=== PATIENT | female | born 1965 | race Caucasian/White ===

== ENCOUNTER 2023-08-03 22:05 | Inpatient (IN) | payer BC, SELFPAY ==
[2023-08-03 18:14] VITALS: BP 132/94
[2023-08-03 18:36] LABS: % Basophils 0.4 % (0-2); % Eosinophils 0.4 % (0-6); % Immature Granulocytes 0.3 % (0-0.5); % Lymphocytes 13.1 % (20.5-51.1); % Monocytes 8.5 % (1.7-9.3); % Neutrophils 77.3 % (42.2-75.2); Absolute Basophils 0.1 10^3/uL (0-0.2); Absolute Eosinophils 0.1 10^3/uL (0-0.7); Absolute Lymphocytes 1.8 10^3/uL (1.2-3.4); Absolute Monocytes 1.1 10^3/uL (0.1-0.6); Absolute Neutrophils 10.3 10^3/uL (1.4-6.5); Hematocrit 38.6 % (37.0-47.0); Hemoglobin 13.5 g/dL (12.0-16.0); Mean Corpuscular Hgb 28.7 pg (27.0-31.0); Mean Corpuscular Volume 82.1 fL (81.0-99.0); Mean Platelet Volume 8.8 fL (7.4-10.4); Nucleated Red Blood Cells % 0 %; Platelet Count 364 10^3/uL (130-400); Red Cell Dist. Width 12.9 % (11.5-14.5); White Blood Cell Count 13.3 10^3/uL (4.8-10.8)
[2023-08-03 18:40] VITALS: BMI 28.6
--- NOTE | 2023-08-03 18:42 | ED.GENMED ---
History of Present Illness
General
Chief Complaint: Abdominal Symptoms
Source: patient
Exam Limitations: none
Time Seen by Provider: 08/03/23 18:22
Travel History
Have you had any contact with someone who has COVID-19?: No
Do you have any symptoms of coronavirus? Fever > 100 degrees, chills, cough, shortness of breath, sore throat, loss of taste or smell, muscle aches, or headache?: No
History of Present Illness
History of Present Illness:
This is a 58 year old female that comes in with c/o lower abd pain. States that since her Resection she has had no problem. Then this morning when she got up she at first felt like she was constipated. Then she started with some lower abd pain and
pain into her back. States that the pain just wraps around. States that she started with a low grade fever of 99.7 at 2pm. State that she felt the same way when she had diverticulitis. States that she also had chills, slight headache and nausea.
Denies any chest pain, SOB, vomiting, diarrhea, dizziness, urinary burning.
Past History
Past History
ED Past Medical History: HTN, Hypercholesterolemia, Hypothyroidism and Other (Pericarditis, ESBL bacteriemia, )
ED Past Surgical History: Bowel resection (Colon resection, ) and Orthopedic (Arthroscopic knee surgery, ORIF right ankle)
Social History
Tobacco: Non-smoker
Alcohol: None
Drug: None
Personal:
Living: with family
Employment: Employed
Family History
Family History: Early CAD (Her brother) and Other
Review of Systems
Review of Systems
All Other Systems: ROS reviewed and negative except as documented in HPI and ROS
Constitutional: Reports fever (Low grade) and chills
EENT: Reports no symptoms
Respiratory: Reports no symptoms; Denies cough or trouble breathing
Cardiac: Reports no symptoms; Denies chest pain
ABD/GI: Reports abdominal pain and nausea; Denies vomiting or diarrhea
: Reports no symptoms; Denies dysuria, frequency or urgency
Musculoskeletal: Reports no symptoms
Skin: Reports no symptoms
Neurological: Reports headache (Slight); Denies dizzy
Psychiatric: Reports no symptoms
Phy Exam
General Physical Exam
General Presentation: no apparent distress
General age: appears stated age
General Skin: warm and dry
General Habitus: normal
General Mental: alert
General Hydration: appears well hydrated
ENT Exam
ENT Exam: TM's normal, pharynx normal and neck supple
Eye Exam
Eye Exam: EOMI
Cardiovascular Exam
Cardiovascular Exam: regular rate/rhythm, no edema, no murmur and normal peripheral pulses
Pulmonary Exam
Pulmonary Exam: lungs clear, no respiratory distress, no rales, chest non tender, no crackles, no rhonchi, no wheezing and no cough
Gastrointestinal Exam
Gastrointestinal Exam: normal bowel sounds, soft, no organomegaly, no pulsatile mass, non distended and tender (Slight left sided tenderness with palpation)
Musculoskeletal Exam
Musculoskeletal Exam: full ROM and no edema
Skin Exam
Skin Exam: normal color, warm/dry, no rash and no petechia
Course
Orders/Labs/Results
Orders:
Orders
08/03/23 18:30
Complete Blood Count/With Diff Urgent
Comprehensive Metabolic Panel Urgent
Lipase Urgent
08/03/23 18:39
0.9% Sodium Chloride 1000 ml [Nss] 1,000 ml IV BOLUS
08/03/23 18:41
CT Abd/pelvis W Iv Cont Urgent
Comment: Colon resection
Reason For Exam: Lower abd pain
08/03/23 18:46
Urinalysis Reflex To Culture Urgent
Date Specimen was Collected: 08/03/23
Time Specimen was Collected: 18:42
08/03/23 20:32
LevoFLOXacin [Levaquin] 500 mg PO NOW STA
MetroNIDAZOLE [Flagyl] 500 mg PO NOW STA
08/03/23 20:36
LevoFLOXacin 500 mg IVPB NOW LevoFLOXacin 500 MG/100 ML [Levaquin] 500 mg in 100 ml IV NOW
MetroNIDAZOLE IVPB 500 mg IVPB NOW MetroNIDAZOLE 500 MG/100 ML [Flagyl 500 mg] 100 ml IV NOW
Abnormal Lab Results
08/03/23
18:30
WBC 13.3 H 10^3/uL
(4.8-10.8)
Absolute Neuts (auto) 10.3 H 10^3/uL
(1.4-6.5)
Absolute Monos (auto) 1.1 H 10^3/uL
(0.1-0.6)
Neutrophils % 77.3 H %
(42.2-75.2)
Lymphocytes % 13.1 L %
(20.5-51.1)
Sodium 134 L mmol/L
(135-145)
Glucose 102 H mg/dl
(70-99)
08/03/23 18:30
08/03/23 18:30
Leukocytosis, Glucose nonfasting. Lipase normal at 74, Urine negative for infection.
Vital Signs
Initial and Last Documented VS:
Initial Vital Signs
Temp Pulse Resp BP Pulse Ox
99.6 F 121 20 132/94 95
08/03/23 18:14 08/03/23 18:14 08/03/23 18:14 08/03/23 18:14 08/03/23 18:14
Last Documented Vital Signs
Temp Pulse Resp BP Pulse Ox
99.6 F 111 18 119/95 95
08/03/23 18:14 08/03/23 18:50 08/03/23 18:50 08/03/23 18:50 08/03/23 18:50
MDM/Problems Addressed
Differential Diagnosis Includes:
UTI, Diverticulitis, Bowel obstruction
MDM/Problems Addressed:
This is a 58 year old female that comes in with c/o lower abd pain. States that the pain wraps around to the back on both sided. States that she felt like this when she had diverticulitis.
Will get labs, CT scan, IV fluids and check urine. Patient refused pain medication.
back into see patient. Reviewed labs and CT report. Patient at this time has a fever of 100.1 and states that she feels really sick. Patient is concerned as she has had ESBL bacteremia in the past. Will the Diverticulitis and ileus, will admit
patient. Hospitalist notified
Chronic conditions affecting care: Previous abdomnial surgery
Acute Exacerbation and/or Progression of Chronic Illness: Previous abdomnial surgery
*Radiology
Radiology exam reviewed: radiology read reviewed (CT scan- In the proximal to midportion of the descending colon, there is an approximately 13cm long segment of diverticulitis. No evidence for abscess. No evidence of free intraperitoneal air. There
are a few scattered top-normal to slightly dilated loops of small bowel, mainly fluid filled, and ) and all reviewed NAD by ED Provider (CT cont- This would suggest a mild focal ileus. Small scar [id number] the anterior lower pole of the left
kidney, also present on previous CT examination in 2013. Small amount of free pelvic fluid in the right posterior pelvis. )
*Pulse Oximetry
Patient hypoxic: no
*EKG
Interpreted by ED Provider?: NA
Rate: EKG- N/A
*Sheetrock Applicator Interpretation
Rate: Sheetrock Applicator- N/A
*Critical Care Note
Total Time (30-74mins, 75-104mins- exclusive of procedures): Not Applicable
ED Attending Note
-
Portions of this chart may have been created with voice recognition software.� Occasional wrong word or��sound alike� substitutions may have occurred due to the inherent limitations of voice recognition software.
Discharge Plan
Departure
Patient Disposition: Admit
Date of Disposition: 08/03/23
Time of Disposition: 20:39
Admit to: Med/Surg
Presentation/result/management discussed w/ accepting MD/DO: Hospitalist
Patient with high blood pressure during this ER visit?: No
Condition: Good
Covid-19: Not Applicable
Discharge Problem:
Diverticulitis, Ileus
Prescriptions:
No Action
amlodipine 5 mg Tablet
5 mg PO DAILY
levothyroxine 112 mcg Tablet
112 mcg PO MOTUWETHFRSA
rosuvastatin 5 mg Tablet
5 mg PO MOWEFR
hydrochlorothiazide 12.5 mg Tablet
12.5 mg PO DAILY
ibuprofen 800 mg Tablet
600 mg PO Q8HPRN PRN (Reason: moderate pain) Qty: 7 0RF
Interventions
Interventions:
*Risk Screen - Suicide Last Done: 08/03/23 18:14
*General Assessment Last Done: 08/03/23 18:14
*Neglect/Abuse Screening Last Done: 08/03/23 18:14
QZ-Hdboxg-Szalemhrlx Assessment Last Done: 08/03/23 18:40
Discharge Date and Time
Print Language: ALGERIAN
[2023-08-03] MEDS: NSS 1000 IV ×2 (18:46→23:12)
[2023-08-03 18:50] VITALS: BP 119/95
[2023-08-03 18:50] LABS: ALT (SGPT) 20 U/L (0-35); AST (SGOT) 27 U/L (14-36); Albumin 4.5 g/dl (3.5-5.0); Alkaline Phosphatase 79 U/L (38-126); Blood Urea Nitrogen 10 mg/dl (7-17); Calcium 9.5 mg/dl (8.4-10.2); Carbon Dioxide 29 mmol/L (22-30); Chloride 99 mmol/L (98-107); Estimated Creatinine Clearance 76 ml/min; Glucose 102 mg/dl (70-99); Lipase 74 U/L (23-300); Potassium 3.6 mmol/L (3.5-5.1); Sodium 134 mmol/L (135-145); Total Bilirubin 0.7 mg/dl (0.2-1.3); Total Protein 7.6 g/dl (6.3-8.2); eGFR > 60.00
[2023-08-03 18:57] LABS: Urine Albumin Negative (Neg - Trace); Urine Bilirubin Negative (Negative); Urine Character Clear (Clear); Urine Color Yellow; Urine Glucose Negative (Negative); Urine Ketone Negative (Negative); Urine Leukocyte Negative (Negative); Urine Nitrite Negative (Negative); Urine Occult Blood Negative (Negative); Urine Specific Gravity 1.005 (<1.030); Urine Urobilinogen Negative (Neg - 1+)
[2023-08-03] MEDS: TYLENOL 1000 MG PO (20:45)
[2023-08-03] MEDS: LEVAQUIN 100 IV (20:46)
[2023-08-03 20:51] VITALS: BP 133/99
--- NOTE | 2023-08-03 21:27 | HPS.HSE ---
Family Physician
-
Family Physician: Avinash Ramey
Chief Complaint
-
Abdominal Pain
History of Present Illness
Patient is a 58-year-old male past medical essential hypertension, hyperlipidemia, recurrent diverticulitis with ESBL E. coli bacteremia status post sigmoidectomy in 2013 who presents with left-sided abdominal pain. Patient states she has not had
any episodes of diverticulitis since her resection in 2013. However, this morning she developed left-sided abdominal discomfort. Later in the afternoon she developed low-grade fever of 99.7 �F. She states throughout the day she did not feel as
her usual self. Given her prior history she presented to the emergency department for evaluation.
Medical History
Past Medical History
Past Medical History: Reports Other
Additional Past Medical History:
Essential Hypertension
Familial Hypercholesterolemia
Hypothyroidism
Recurrent Diverticulitis s/p Sigmoidectomy
Past Surgical History: Reports Other
Additional Past Surgical History:
Sigmoidectomy
Social History
Tobacco: Non-smoker
Alcohol: None
Family History
Family History: Not pertinent
Allergies / Home Medications
Allergies reflects when Allergies were last updated in [employer].
Home Medications with original date entered in [employer]
Allergy/Medication List:
Allergies
Allergy/AdvReac Type Severity Reaction Status Date / Time
No Known Allergies Allergy Verified 08/03/23 18:18
Home Medications
amlodipine 5 mg tablet 5 mg PO DAILY Blood Pressure 01/24/23
hydrochlorothiazide 12.5 mg tablet 12.5 mg PO DAILY Fluid Retention/Swelling 01/24/23
levothyroxine 112 mcg tablet 112 mcg PO MOTUWETHFRSA Thyroid 01/24/23
rosuvastatin 5 mg tablet 5 mg PO MOWEFR@2200 High Cholesterol 01/24/23
evolocumab 140 mg/mL subcutaneous pen injector (Repatha Benjamin) 140 mg SC Q2W 08/03/23
ibuprofen 200 mg tablet 600 mg PO Q6H PRN mild pain 08/03/23
Review of Systems
-
A 12 point ROS was completed and negative except as noted: Yes
Constitutional: Reports Fever
Respiratory: Denies Cough or Trouble Breathing
Cardiac: Denies Chest Pain or Palpitations
Abdomen/GI: Reports See HPI
Physical Exam
Vital Signs
Vital Signs
Temp Pulse Resp BP Pulse Ox
99.6 F 112 19 133/99 93
08/03/23 18:14 08/03/23 20:51 08/03/23 20:51 08/03/23 20:51 08/03/23 20:51
Physical Exam
General: Comfortable and Conversant
HEENT: Anicteric and Moist mucous membranes
Respiratory: Clear and Non Labored Respirations
Cardiac: S1/S2, Regular Rhythm and Tachycardia (Slightly)
GI: Soft and Tender (Mild Left lower quadrant without rebound or guarding)
Rectal: Deferred by Provider
Musculoskeletal: No Clubbing, No Cyanosis and No Edema
Skin: Warm and Dry
Neuro: Awake, Alert, Oriented and Nonfocal/grossly intact
Psych: Calm
Laboratory Results
-
08/03/23 18:30
08/03/23 18:30
Laboratory Results
Total Bilirubin 0.7 mg/dl (0.2-1.3) 08/03/23 18:30
AST 27 U/L (14-36) 08/03/23 18:30
ALT 20 U/L (0-35) 08/03/23 18:30
Alkaline Phosphatase 79 U/L (38-126) 08/03/23 18:30
Lipase 74 U/L (23-300) 08/03/23 18:30
Data Reviewed
-
CT Scan: Report Reviewed by me
Lab Data: Labs Reviewed by me
Impression/Plan
-
Sepsis secondary to Diverticulitis of the Descending Colon
-Check blood cultures given prior history of E. coli Bacteremia
-Continue Levaquin and Flagyl
-Continue NPO - Advance to clears if pain improved in AM
Essentail Hypertension
-Continue amlodipine
-Hold HCTZ
Hyperlipidemia
-Continue Crestor
-Patient also maintained on Repatha as outpatient
Hypothyroidism
-Continue levothyroxine
DVT Proph: Lovenox
Code Status: Full Code
[2023-08-03] MEDS: FLAGYL 500 MG 100 IV (21:53)
--- NOTE | 2023-08-03 21:55 | W.PN.UPDATE ---
Update Note
Progress Note Update
This is an addendum to the history and physical written by bulk driver Kiersten Cortes on 08/03/23.�
Patient seen and examined independently with PA.� 58-year-old female past medical history of diverticulitis in the past status post bowel resection in 2013 associated with ESBL bacteremia, hypertension, hypercholesteremia, hypothyroidism presenting
with left-sided abdominal pain and low-grade fever today.� CT scan shows 13 cm segment of diverticulitis in the proximal to midportion of the descending colon.
NPO.� IV fluids, check blood cultures, Levaquin and Flagyl.� Hold hydrochlorothiazide.
[2023-08-03 22:05] LABS: Lactic Acid 0.8 mmol/L (0.7-2.0)
[2023-08-04] VITALS: BP 109/83
[2023-08-04] MEDS: FLAGYL 500 MG 100 IV (06:37)
[2023-08-04] MEDS: NSS 1000 IV ×3 (06:37→23:21)
[2023-08-04] MEDS: TYLENOL 650 MG PO (06:56)
[2023-08-04 07:05] LABS: Hematocrit 32.5 % (37.0-47.0); Hemoglobin 11.3 g/dL (12.0-16.0); Mean Corp Hgb Conc. 34.8 g/dL (33.0-37.0); Mean Corpuscular Hgb 28.9 pg (27.0-31.0); Mean Corpuscular Volume 83.1 fL (81.0-99.0); Mean Platelet Volume 9.2 fL (7.4-10.4); Platelet Count 302 10^3/uL (130-400); Red Blood Cell Count 3.91 10^6/uL (4.20-5.40); Red Cell Dist. Width 13.2 % (11.5-14.5); White Blood Cell Count 9.8 10^3/uL (4.8-10.8)
[2023-08-04 07:26] LABS: Blood Urea Nitrogen 7 mg/dl (7-17); Calcium 8.8 mg/dl (8.4-10.2); Carbon Dioxide 26 mmol/L (22-30); Chloride 105 mmol/L (98-107); Estimated Creatinine Clearance 87 ml/min; Glucose 106 mg/dl (70-99); Potassium 3.6 mmol/L (3.5-5.1); Sodium 136 mmol/L (135-145); eGFR > 60.00
[2023-08-04] MEDS: SYNTHROID 112 MCG PO (08:29)
[2023-08-04 08:35] VITALS: BP 108/68
--- NOTE | 2023-08-04 08:40 | PTCARENOTE ---
pt aaox3. sates having a headache but tylenol has helped. no abd pain. no sob. room air breath sounds clear. ivf running as ordered. diet advanced to clears as ordered.
[2023-08-04] MEDS: NORVASC 5 MG PO (09:35)
--- NOTE | 2023-08-04 09:58 | W.PN.HOSP.TC ---
Today's Communication/Plan
-
Will change abx to Zosyn
Consult Dr. Yo
continue IVF
allow clear liquids
Assessment / Plan
Assessment / Plan
Sepsis secondary to Diverticulitis of the Descending Colon
Hx of Diverticulitis with resection by 12/2013, did very well post surgical intervention until current episode
-Check blood cultures given prior history of E. coli (ESBL) Bacteremia
-Change Levaquin and Flagyl to Zosyn
-will allow clears
CT scan abd/pelvis: In the proximal to midportion of the descending colon, there is an approximately 13 cm long segment of diverticulitis. No evidence for abscess. No evidence of free intraperitoneal air.
There are a few scattered top-normal to slightly dilated loops of small bowel, mainly fluid-filled, and this would suggest a mild focal ileus.
Small scar involving the anterior lower pole of the left kidney, also present on previous CT examination in 2013.
Small amount of free pelvic fluid in the right posterior pelvis.
Essential Hypertension
-Continue amlodipine
-Hold HCTZ
Hyperlipidemia
-Continue Crestor
-Patient also maintained on Repatha as outpatient
Hypothyroidism
-Continue levothyroxine
DVT Proph: Lovenox
Code Status: Full Code
Anticipated Discharge: 24 - 48 hours
Subjective/Interval History
-
Date of Service: August 04, 2023
Has not yet passed stool, still with abd pain. Pt is wondering about timing of dc
Objective Data
-
Labs:
Laboratory Results
08/04/23
06:46
WBC 9.8
Hgb 11.3 L
Hct 32.5 L
Plt Count 302
Sodium 136
Potassium 3.6
Chloride 105
Carbon Dioxide 26
BUN 7
Creatinine 0.7
Glucose 106 H
Calcium 8.8
Vital Signs:
Vital Signs
Temp Pulse Resp BP Pulse Ox
98.7 F 95 18 108/68 95
08/04/23 08:35 08/04/23 09:35 08/04/23 08:35 08/04/23 09:35 08/04/23 08:39
Review of Systems
-
History Source: Patient
Constitutional: Reports Fever (she states she was told temp of 101.2 on admission)
EENT: Reports No Symptoms Reported
Respiratory: Reports No Symptoms
Cardiac: Reports No Symptoms
Abdomen/GI: Reports Abdominal Pain, Nausea and Anorexia; Denies Vomiting
Genitourinary: Reports No Symptoms
Physical Exam
-
General: Well Developed, Well Nourished and No Apparent Distress
HEENT: Normocephalic, Atraumatic and Moist Mucous Membranes
Respiratory: Clear to Auscultation; Negative Wheezes, Rales or Rhonchi
Cardiac: Regular Rhythm and S1/S2
GI: Soft, Nondistended and Tender; Negative Normal Bowel Sounds (decreased,more prominent on Rt side>Lt)
Musculoskeletal: No Clubbing, No Cyanosis and No Edema
--- NOTE | 2023-08-04 11:00 | CON.GS ---
Consultation
-
Date/Time Consultation Requested: 08/04/23 10 AM
Date/Time Consultation Performed: 08/04/23 10 AM
Requesting Provider: Jeronimo
Performing Provider: Sanaz
Reason for Consultation: Diverticulitis
Medical History
-
Chief Complaint: Left-sided abdominal pain
History of Present Illness:
Mrs. Hernandez is a 58-year-old female previously known to myself status post laparoscopic sigmoidectomy in 2013 for management of multiply recurrent sigmoid diverticulitis. She tolerated this procedure well without any perioperative complications.
She has not had any recurrent bouts of diverticulitis since the procedure up to now.
Patient states she was in her usual baseline state of health until . As the day was going on she began to experience abdominal discomfort in the suprapubic/periumbilical abdomen but not localizing to the left lower quadrant. She was
concerned that it may be a new bout of diverticulitis as it did somewhat remind her of her previous episodes but not quite as localized or deep in the pelvis. She backed down her diet the following day but was continuing to tolerate p.o. intake.
Had some mild nausea and anorexia Tuesday in the Tuesday and low-grade fever. Due to the persistence of her pain/tenderness she presented for emergency department evaluation last night identifying diverticulitis at the region of the splenic
flexure/descending colon.
This a.m. she states that her pain has nearly resolved and she has minimal residual tenderness. No nausea. No abdominal bloating or distention. She is passing flatus on occasion. She had multiple small/soft semiformed bowel movements yesterday.
None today. Temperature 101 overnight.
No abdominal surgeries since laparoscopic sigmoidectomy with myself. Last colonoscopy 2013, prior to sigmoidectomy.
Past Medical History
Past Medical History: Other (Hypertension, hypercholesterolemia, hypothyroidism, previous history of sigmoid diverticulitis)
Past Surgical History: Bowel Resection (Laparoscopic sigmoidectomy 2013)
Social History
Alcohol: None
Drug: None
Personal:
Living: With Family
Employment: Employed
Family History
Family History: Reviewed & Noncontributory
Allergies / Home Medications
Allergy/AdvReac Type Severity Reaction Status Date / Time
No Known Allergies Allergy Verified 08/03/23 18:18
�Medication �Instructions �Recorded �Confirmed �Type
amlodipine 5 mg tablet 5 mg PO DAILY Blood Pressure 01/24/23 08/03/23 History
hydrochlorothiazide 12.5 mg tablet 12.5 mg PO DAILY Fluid 01/24/23 08/03/23 History
Retention/Swelling
levothyroxine 112 mcg tablet 112 mcg PO MOTUWETHFRSA Thyroid 01/24/23 08/03/23 History
rosuvastatin 5 mg tablet 5 mg PO MOWEFR@2200 High 01/24/23 08/03/23 History
Cholesterol
evolocumab 140 mg/mL subcutaneous 140 mg SC Q2W High Cholesterol 08/03/23 08/03/23 History
pen injector (Repatha Benjamin)
ibuprofen 200 mg tablet 600 mg PO Q6H PRN mild pain 08/03/23 08/03/23 History
Review of Systems
-
History Source: Patient
All other systems: Negative unless noted
A 10 point review of systems was completed, and was negative except as per HPI.
Physical Exam
Vital Signs
Temp Pulse Resp BP Pulse Ox
98.7 F 95 18 108/68 95
08/04/23 08:35 08/04/23 09:35 08/04/23 08:35 08/04/23 09:35 08/04/23 08:39
08/03/23 08/04/23 08/05/23
06:59 06:59 06:59
Actual Weight 75.5 kg
Body Mass Index (BMI) 28.6
Lab Results
08/04/23 06:46
08/04/23 06:46
WBC 9.8 10^3/uL (4.8-10.8) 08/04/23 06:46
Hgb 11.3 g/dL (12.0-16.0) L 08/04/23 06:46
Hct 32.5 % (37.0-47.0) L 08/04/23 06:46
Plt Count 302 10^3/uL (130-400) 08/04/23 06:46
Abs Immat Gran (auto) 0.0 10^3/uL (0-0.05) 08/03/23 18:30
Neutrophils % 77.3 % (42.2-75.2) H 08/03/23 18:30
Physical Exam
General: Well Developed, Well Nourished, No Apparent Distress and Comfortable
HEENT: Normocephalic, Anicteric and Moist Mucous Membranes
Respiratory: Non Labored Respirations
Cardiac: Regular Rhythm
GI: Soft, Non Distended and Tender (Mild tenderness to palpation suprapubic and left side. No rebound rigidity or guarding)
Skin: Warm
Neuro: AO x 3
Data Reviewed
-
CT Scan: Image Personally Visualized and interpreted, Report Reviewed by me and Discussed with Patient
Labs: Labs Reviewed by me and Discussed with Patient
Assessment / Plan
-
Assessment: 58-year-old female presenting with diverticulitis affecting proximal descending colon in the region of the splenic flexure.
CT imaging personally reviewed and interpreted as well as reviewing radiologist report. Associated surrounding inflammatory changes at the proximal descending colon to the mid descending colon but no evidence of microperforation such as
extraluminal air, free fluid or abscess formation. Numerous diverticula in the region of the inflammation highly suggestive that this is diverticulitis. Distal descending colon and neosigmoid colon/colorectal anastomosis unaffected.
Patient responding well to medical treatment including bowel rest, IV fluid hydration and antibiotics.
Plan: Continue medical management, okay for liquid diet today. Maintain IV fluid hydration. Zosyn for broad-spectrum empiric GI antibiotic coverage. Based on improvement overnight would likely anticipate discharge tomorrow on an additional 10 to
14-day course of oral antibiotics, transition to low residue diet. Recommended subsequent outpatient GI follow-up for consideration of colonoscopy after recovery from acute bout of descending colon diverticulitis.
Will follow, thank you.
[2023-08-04] MEDS: ZOSYN 50 IV ×3 (11:56→23:28)
--- NOTE | 2023-08-04 15:59 | PTCARENOTE ---
pt transferred to floor with all belongings ivf running
[2023-08-04 16:05] VITALS: BMI 28.6
[2023-08-04 16:10] VITALS: BP 122/89
--- NOTE | 2023-08-04 16:15 | PTCARENOTE ---
Received patient from ED into room 2126. Patient AAOx3, VSS, NSS infusing through R AC @ 125 ml/hr. Patient ambulatory in room, states abdominal pain has improved throughout day. Clear liquid diet ordered, patient oriented to room and call narvaez,
states no concerns at this time.
[2023-08-04 23:00] VITALS: BP 120/82
[2023-08-05] MEDS: ZOSYN 50 IV ×2 (05:47→11:25)
[2023-08-05 06:19] LABS: % Basophils 0.9 % (0-2); % Eosinophils 3.4 % (0-6); % Immature Granulocytes 0.1 % (0-0.5); % Lymphocytes 21.3 % (20.5-51.1); % Monocytes 9.2 % (1.7-9.3); % Neutrophils 65.1 % (42.2-75.2); Absolute Basophils 0.1 10^3/uL (0-0.2); Absolute Eosinophils 0.2 10^3/uL (0-0.7); Absolute Lymphocytes 1.5 10^3/uL (1.2-3.4); Absolute Monocytes 0.7 10^3/uL (0.1-0.6); Absolute Neutrophils 4.6 10^3/uL (1.4-6.5); Hemoglobin 10.7 g/dL (12.0-16.0); Mean Corp Hgb Conc. 33.4 g/dL (33.0-37.0); Mean Corpuscular Hgb 28.5 pg (27.0-31.0); Mean Corpuscular Volume 85.1 fL (81.0-99.0); Mean Platelet Volume 9.3 fL (7.4-10.4); Nucleated Red Blood Cells % 0 %; Platelet Count 306 10^3/uL (130-400); Red Blood Cell Count 3.76 10^6/uL (4.20-5.40)
[2023-08-05 07:01] LABS: ALT (SGPT) 19 U/L (0-35); AST (SGOT) 25 U/L (14-36); Albumin 3.3 g/dl (3.5-5.0); Alkaline Phosphatase 70 U/L (38-126); Blood Urea Nitrogen 4 mg/dl (7-17); Calcium 8.8 mg/dl (8.4-10.2); Carbon Dioxide 27 mmol/L (22-30); Chloride 106 mmol/L (98-107); Estimated Creatinine Clearance 76 ml/min; Glucose 94 mg/dl (70-99); Potassium 3.8 mmol/L (3.5-5.1); Sodium 140 mmol/L (135-145); Total Bilirubin 0.6 mg/dl (0.2-1.3); Total Protein 5.7 g/dl (6.3-8.2); eGFR > 60.00
[2023-08-05 08:00] VITALS: BP 123/79
--- NOTE | 2023-08-05 08:10 | W.PN.GS2 ---
Addendum entered and electronically signed by Christopher Yo MD 08/05/23 08:24:
Patient seen and examined with surgical LANDSCAPING MANAGER. Agree with documented progress note consistent with my simultaneous evaluation and examination.
Patient is feeling much better. No pain but some residual discomfort, quite minimal.
Appetite has returned and hungry. Passing flatus and formed bowel movement yesterday.
AFVSS
ABD: Soft, nondistended, minimal tenderness on deep palpation left abdomen. No rebound rigidity or guarding.
A/P: 58-year-old female with proximal descending colon diverticulitis
Responding well to medical management
Low residue diet initiated and recommended maintaining for next 4 weeks before transitioning back to regular/high-fiber diet
DC on Augmentin 10 to 14 days for coverage of diverticulitis
Patient last colonoscopy 2013 prior to sigmoidectomy with myself, recommended GI follow-up for interval follow-up colonoscopy
Patient will reach out to myself on an as-needed basis or if any concerns or questions after discharge
Original Note:
Today's Communication / Plan
-
Low residue diet
Assessment / Plan
-
58 yo female presenting with diverticulitis of the affecting proximal descending colon
AFVSS
Pain resolved, tolerating clears
--Advance to LRD
--Transition to PO abx upon discharge for total of 10-14 days
--Recommend GI follow up as OP for consideration of colonoscopy, d/w patient
Clear for discharge once tolerating diet from surgical standpoint
Subjective Data
-
Date of Service: August 05, 2023
Patient seen and examined at bedside with Dr. Yo. Denies n/v. Abdominal pain resolved. Normal BM yesterday.
Objective Data
-
Intake and Output
08/04/23 08/05/23 08/06/23
06:59 06:59 06:59
Intake Total 1600 / 1600
Balance 1600 / 1600
Intake:
IV fluids (Total) 1500 / 1500
IV piggybacks 100 / 100
Other:
Number of approximated MODERATE 2
amounts of urine
Vital Signs
Temp Pulse Resp BP Pulse Ox
99.0 F 95 20 120/82 94
08/04/23 23:00 08/04/23 23:00 08/04/23 23:00 08/04/23 23:00 08/05/23 00:45
Lab Results
08/05/23 05:20
08/05/23 05:20
Calcium 8.8 mg/dl (8.4-10.2) 08/05/23 05:20
Total Bilirubin 0.6 mg/dl (0.2-1.3) 08/05/23 05:20
AST 25 U/L (14-36) 08/05/23 05:20
ALT 19 U/L (0-35) 08/05/23 05:20
Alkaline Phosphatase 70 U/L (38-126) 08/05/23 05:20
Total Protein 5.7 g/dl (6.3-8.2) L D 08/05/23 05:20
Albumin 3.3 g/dl (3.5-5.0) L 08/05/23 05:20
Physical Exam
-
NAD
ABD soft, NT, ND
[2023-08-05] MEDS: SYNTHROID 112 MCG PO (08:37)
[2023-08-05] MEDS: NORVASC 5 MG PO (08:37)
[2023-08-05] MEDS: NSS 1000 IV (08:37)
--- NOTE | 2023-08-05 11:30 | W.PN.HOSP.TC ---
Today's Communication/Plan
-
dc home
Assessment / Plan
Assessment / Plan
Assessment:
Sepsis secondary to Diverticulitis of the Descending Colon
Hx of Diverticulitis with resection by 12/2013, did very well post surgical intervention until current episode
- dc on Augmentin x 12 more days to complete 14 day course
- LRD x 4 weeks - packet given by RN
- OP f/u prn with GS and with GI For C-scope in 2 months
Essential Hypertension
-Continue amlodipine
-continue HCTZ
Hyperlipidemia
-Continue Crestor
-Patient also maintained on Repatha as outpatient
Hypothyroidism
-Continue levothyroxine
DVT ppx: Lovenox
Code Status: Full Code
More than 30 minutes spent in discharge including
Final examination of the patient
Summarizing hospital stay
Instructions for continuing care to all relevant caregivers
Preparation of discharge records, prescriptions, and referral forms
Total time spent (in minutes): 41
Anticipated Discharge: Today
Subjective/Interval History
-
Date of Service: August 05, 2023
doing well no complaints
Objective Data
-
Labs:
Laboratory Results
08/05/23
05:20
WBC 7.0
Hgb 10.7 L
Hct 32.0 L
Plt Count 306
Sodium 140
Potassium 3.8
Chloride 106
Carbon Dioxide 27
BUN 4 L
Creatinine 0.8
Glucose 94
Calcium 8.8
Total Bilirubin 0.6
AST 25
ALT 19
Alkaline Phosphatase 70
Vital Signs:
Vital Signs
Temp Pulse Resp BP Pulse Ox
98.2 F 78 16 123/79 96
08/05/23 08:00 08/05/23 08:37 08/05/23 08:00 08/05/23 08:37 08/05/23 10:19
I&O
08/04/23 08/05/23 08/06/23
06:59 06:59 06:59
Intake Total 1600 / 1600
Balance 1600 / 1600
Physical Exam
-
General: No Apparent Distress
HEENT: Normocephalic and Atraumatic
Respiratory: Negative Wheezes or Rales
Cardiac: Regular Rhythm and S1/S2
GI: Soft and Nontender
Genito-urinary: No Costovertebral Tender
Neuro: AO x 3
Hematologic / Lymphatic: No Lymphadenopathy
Psych: Calm
Data Reviewed
-
Total Time Spent with Patient (in minutes): 41
Labs: Labs Reviewed by me
[2023-08-05 12:00] VITALS: BP 128/86
--- NOTE | 2023-08-05 12:04 | CM ---
Initial assessment completed with patient who lives with her in a 2 story home plus basement with 3 steps to enter, B/B on , 1/2 bath on . No DME, no in-home services, no psychiatric hospitalizations. 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 Pharmacy is [address] PCP is Dr. Avinash Ramey. Anticipate no needs at discharge.
--- NOTE | 2023-08-05 12:06 | W.DS.TRANS ---
DC Summary - Injury Prevention Coordinator
-
Discharge Instructions:
Discharge Diagnosis/Procedures descending colon diverticulitis
Diet Low Residue
Additional Diets x 4 weeks
Activity As tolerated
Bathing Restrictions None
Instructions:
Stand-Alone Forms:
Changes to Home Medications: No
Discharge Medications:
DC Medications w/original date entered in [facility]
amlodipine 5 mg tablet 5 mg PO DAILY Blood Pressure 01/24/23
hydrochlorothiazide 12.5 mg tablet 12.5 mg PO DAILY Fluid Retention/Swelling 01/24/23
levothyroxine 112 mcg tablet 112 mcg PO MOTUWETHFRSA Thyroid 01/24/23
rosuvastatin 5 mg tablet 5 mg PO MOWEFR@2200 High Cholesterol 01/24/23
evolocumab 140 mg/mL subcutaneous pen injector (Repatha SureClick) 140 mg SC Q2W High Cholesterol 08/03/23
acetaminophen 325 mg tablet 650 mg (2 x 325 mg) PO Q4HPRN PRN mild pain/ fever>100.5F #60 tabs 08/05/23
amoxicillin 875 mg-potassium clavulanate 125 mg tablet 1 tab PO BID #24 tabs 08/05/23
Home Medication Changes
Pending Results: No
Total time spent discharging patient (in min): 41
--- NOTE | 2023-08-05 12:13 | CM ---
Patient has been medically cleared for discharge to home with no additional skilled services. Patient has arranged for transport home.
--- NOTE | 2023-08-05 13:26 | PTCARENOTE ---
Patient discharged home. This RN removed patient's IV, discharge instructions and medications reviewed by flow nurse Nacho. Patient dressed and belongings gathered independently in room. Patient taken down to ED via wheelchair and staff escort.
== END 2023-08-05 14:06 | disposition home or self-care (01) | DRG 872 ==
LOC: 2 NORTH 22:05
PROVIDERS: Clinical Nurse Specialist Family Health; Emergency Medicine; Internal Medicine; Physician Assistant Medical; ADMITTING PHYSICIAN Hospitalist; ATTENDING PHYSICIAN Internal Medicine; CONSULT PHYSICIAN Surgery; EMERGENCY PHYSICIAN Emergency Medicine; FAMILY PHYSICIAN Family Medicine
DX: A41.9 Sepsis, unspecified organism (principal); K57.32 Diverticulitis of large intestine without perforation or abscess without bleeding; K56.7 Ileus, unspecified; E03.9 Hypothyroidism, unspecified; I10 Essential (primary) hypertension; E78.01 Familial hypercholesterolemia; Z90.49 Acquired absence of other specified parts of digestive tract; Z82.49 Family history of ischemic heart disease and other diseases of the circulatory system; Z79.890 Hormone replacement therapy
CPT/HCPCS: 74177; 80048; 80053; 81003; 83605; 83690; 85025; 85027; 87040; 96361; 96365; 96367; 99285; Q9967

== ENCOUNTER → 2024-01-30 06:18 | Day surgery (SDC) | payer BC, SELFPAY | LOC: GI 06:18 | PROVIDERS: ATTENDING PHYSICIAN Internal Medicine | DX: Z12.11 Encounter for screening for malignant neoplasm of colon (principal); K57.30 Diverticulosis of large intestine without perforation or abscess without bleeding; D12.0 Benign neoplasm of cecum; Z98.0 Intestinal bypass and anastomosis status | CPT/HCPCS: 45380; 88305 ==

== ENCOUNTER → 2024-07-16 19:14 | Outpatient (REF) | payer BC, SELFPAY | LOC: WDC 19:14 | PROVIDERS: ATTENDING PHYSICIAN Internal Medicine | DX: Z12.31 Encounter for screening mammogram for malignant neoplasm of breast (principal) | CPT/HCPCS: 77063; 77067 ==

== ENCOUNTER → 2025-01-24 12:01 | Outpatient (REF) | payer BC, SELFPAY ==
[2025-01-31 05:31] LABS: HPV, High Risk Not Detected; HPV, High Risk Source Cervical
== END ==
LOC: CPAP 12:01
PROVIDERS: ATTENDING PHYSICIAN Nurse Practitioner Adult Health
DX: Z01.419 Encounter for gynecological examination (general) (routine) without abnormal findings (principal)
CPT/HCPCS: 87624